=== PATIENT | female | born 1980 | race Caucasian/White ===

== ENCOUNTER 2018-03-24 20:32 | Emergency (ER) | payer MEDICAID ==
[~2018-03-24] VITALS: Ht 167.6 cm; Wt 127.0 kg
[2018-03-24 20:35] VITALS: BP 120/68
[2018-03-24] MEDS: MORPHINE SULFATE 4 MG/ML SYR IVP ONE (21:23)
[2018-03-24] MEDS: ONDANSETRON 4 MG/2 ML VIAL IVP ONE (21:23)
[2018-03-24] MEDS: NACL 0.9% 1,000 ML IV ONE (21:31)
[2018-03-24 21:58] LABS: BASOPHILS % (AUTO) 0.3 % (0.0-2.0); EOSINOPHILS # (AUTO) 0.2 K/uL (0-0.4); HEMATOCRIT 35.8 % (36-48); HEMOGLOBIN 11.4 g/dL (12.0-16.0); LYMPHOCYTES # (AUTO) 3.1 K/uL (2.5-16.5); LYMPHOCYTES % (AUTO) 34.2 % (20.5-51.1); MEAN CORPUSCULAR HEMOGLOBIN 26 pg (27-31); MEAN CORPUSCULAR HGB CONC 32 g/dL (33-37); MEAN CORPUSCULAR VOLUME 82.8 fL (80-94); MONOCYTES # (AUTO) 0.5 K/uL (0.8-1.0); MONOCYTES % (AUTO) 5.9 % (1.7-9.3); NEUTROPHILS # (AUTO) 5.2 K/uL (1.8-7.7); NEUTROPHILS % (AUTO) 57.6 % (42.2-75.2); PLATELET COUNT (AUTO) 257 K/uL (140-450); RED BLOOD CELL COUNT(AUTO) 4.32 MIL/uL (4.20-5.40); RED CELL DISTRIBUTION WIDTH 13.6 % (11.6-13.7); WHITE BLOOD COUNT (AUTO) 9.1 K/uL (4.8-10.8)
[2018-03-24 22:05] LABS: ANION GAP 9.7 (8-16); CARBON DIOXIDE 26.3 mmol/L (21-32); CREATININE 0.7 mg/dL (0.6-1.3)
[2018-03-24 22:12] LABS: ALBUMIN 3.2 g/dL (3.4-5.0); TOTAL BILIRUBIN 0.1 mg/dL (0.0-1.0)
[2018-03-24 22:12] LABS: APPEARANCE,URINE CLEAR (CLEAR); BILIRUBIN,URINE NEGATIVE (NEGATIVE); BLOOD, URINE 2+ (NEGATIVE); COLOR,URINE STRAW (YELLOW); LEUKOCYTE ESTERASE ,URINE NEGATIVE (NEGATIVE); NITRITE, URINE NEGATIVE (NEGATIVE); PH,URINE 7.5 (5.0-9.0); UGLUCOSE NEGATIVE (NEGATIVE)
[2018-03-24 22:20] LABS: RBC,URINE 3-10 (FEW) /HPF (0-5); WBC,URINE 0-5 (RARE) /HPF (0-5)
[2018-03-24 23:18] VITALS: BP 130/75
== END 2018-03-24 23:19 | disposition home or self-care (01) ==
LOC: MED 20:32
DX: R10.31 Right lower quadrant pain (principal)
CPT/HCPCS: 36415; 74176; 80053; 81001; 81025; 83690; 85025; 96361; 96374; 96375; 99285; J2270; J2405; J7030

== ENCOUNTER 2020-11-30 13:11 | Emergency (ER) | payer MEDICAID ==
[~2020-11-30] VITALS: Ht 167.6 cm; Wt 101.2 kg
[2020-11-30 13:13] VITALS: BP 134/74
[2020-11-30 13:50] LABS: APPEARANCE,URINE CLEAR (CLEAR); BILIRUBIN,URINE NEGATIVE (NEGATIVE); BLOOD, URINE 3+ (NEGATIVE); COLOR,URINE YELLOW (YELLOW); LEUKOCYTE ESTERASE ,URINE 2+ (NEGATIVE); NITRITE, URINE NEGATIVE (NEGATIVE); PH,URINE 6.5 (5.0-9.0); UGLUCOSE NEGATIVE (NEGATIVE)
[2020-11-30] MEDS ORDERED: PHEN-1877 PO (14:20)
[2020-11-30] MEDS ORDERED: CEPH-588 PO (14:20)
[2020-11-30 14:42] VITALS: BP 134/74
[2020-11-30 14:51] LABS: RBC,URINE 20-50 /HPF (0-5)
== END 2020-11-30 14:35 | disposition home or self-care (01) ==
LOC: MED 13:11
DX: N39.0 Urinary tract infection, site not specified (principal); R31.9 Hematuria, unspecified; Z79.899 Other long term (current) drug therapy
CPT/HCPCS: 81001; 81025; 87086; 99283

== ENCOUNTER 2023-10-10 12:50 | Emergency (ER) | payer MEDICAID, OTHER ==
[~2023-10-10] VITALS: Ht 167.6 cm; Wt 91.9 kg
[~2023-10-10 12:50] MED LIST: CEPH-588 PO; PHEN-1877 PO
[2023-10-10 13:02] VITALS: BP 108/56; PULSE 52; RESP 17; TEMP 98.6; O2SAT 98
[2023-10-10] MEDS: KETOROLAC 30 MG/ML VIAL IM ONE (13:37)
[2023-10-10] MEDS ORDERED: ACET-8905 PO (14:27)
[2023-10-10] MEDS ORDERED: METH4TAB1 PO (14:27)
[2023-10-10] MEDS ORDERED: LID5T TP (14:27)
[2023-10-10 14:40] VITALS: O2SAT 98
== END 2023-10-10 14:47 | disposition home or self-care (01) ==
LOC: MED 12:50
DX: S39.012A Strain of muscle, fascia and tendon of lower back, initial encounter (principal); R03.0 Elevated blood-pressure reading, without diagnosis of hypertension; Z90.710 Acquired absence of both cervix and uterus; Z79.1 Long term (current) use of non-steroidal anti-inflammatories (NSAID); Z79.899 Other long term (current) drug therapy; X50.9XXA Other and unspecified overexertion or strenuous movements or postures, initial encounter; Y93.89 Activity, other specified; Y92.89 Other specified places as the place of occurrence of the external cause; Y99.8 Other external cause status
CPT/HCPCS: 72100; 81002; 81025; 96372; 99283; J1885

== ENCOUNTER 2024-03-04 08:54 | Emergency (ER) | payer MEDICAID, OTHER ==
[~2024-03-04] VITALS: Ht 167.6 cm; Wt 94.3 kg
[~2024-03-04 08:54] MED LIST changes: +ACET-8905 PO; +LID5T TP; +METH4TAB1 PO
[2024-03-04 09:16] VITALS: BP 129/77; PULSE 60; RESP 16; TEMP 98.1; O2SAT 99
[2024-03-04] MEDS ORDERED: GABA300C PO (10:33)
== END 2024-03-04 10:47 | disposition home or self-care (01) ==
LOC: MED 08:54
DX: E11.40 Type 2 diabetes mellitus with diabetic neuropathy, unspecified (principal); E78.00 Pure hypercholesterolemia, unspecified; Z90.710 Acquired absence of both cervix and uterus; Z79.899 Other long term (current) drug therapy
CPT/HCPCS: 82948; 99283